=== PATIENT | male | born 1955 | race Caucasian/White ===

== ENCOUNTER 2021-05-27 08:17 | Emergency (ER) | payer OTHER ==
[~2021-05-27] VITALS: Ht 177.8 cm; Wt 79.5 kg
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
[2021-05-27] MEDS ORDERED: DIPH,PERTUSS(ACELL),TET VAC/PF 0.5 ML SYRINGE. VAX IM ONE (09:00)
[2021-05-27] MEDS ORDERED: CEPH500T PO (09:18)
[2021-05-27 09:37] VITALS: BP 146/72
== END 2021-05-27 09:40 | disposition home or self-care (01) ==
LOC: ER 08:17
DX: S62.522A Displaced fracture of distal phalanx of left thumb, initial encounter for closed fracture (principal); S50.311A Abrasion of right elbow, initial encounter; S40.211A Abrasion of right shoulder, initial encounter; S80.211A Abrasion, right knee, initial encounter; S60.512A Abrasion of left hand, initial encounter; V18.4XXA Pedal cycle driver injured in noncollision transport accident in traffic accident, initial encounter; Y93.I9 Activity, other involving external motion; Y92.488 Other paved roadways as the place of occurrence of the external cause; Y99.8 Other external cause status
CPT/HCPCS: 29125; 73130; 90471; 90715; 99283

== ENCOUNTER → 2021-12-14 | Outpatient (CLI) | payer OTHER ==
[~2021-12-14] MED LIST: CEPH500T PO; IOHEXOL 240 MG/ML 50ML VIAL. ONE; IOHEXOL 240 MG/ML 50ML VIAL. PO ONE; IOHEXOL 300 MG/ML 75 ML VIAL. IV ONE
--- NOTE | 2021-12-14 13:21 | RAD ---
CT ABDOMEN+PELVIS WO+W History: Microscopic hematuria Comparison: None. Technique: CT of the abdomen and pelvis with oral contrast only. Subsequently after the administratio n of intravenous contrast, nephrographic phase CT through the kidneys and delayed phases through the abdomen and pelvis. Post processed rotating mid 3-D reconstruction of the excretory urogram. Findings: The lung bases are clear. The liver, gallbladder, pancreas, spleen, and adrenal glands are unremarkab le. There is no nephrolithiasis. A right upper pole renal cyst measures 2.6 x 1.8 cm. No renal masses. No hydronephrosis. No urothelial lesion identified on excretory phase. Mild enlargement of the prostate with mass impression on the inferior bladder. Otherwise unremarkable bladder. The stomach and small bowel are within normal limits. Normal appendix. Colon is unremarkable. No free intraperitoneal air or fluid. No adenopathy. Vasculature is unremarkable. Fat-containing left inguinal hernia. No significant osseous abnormality. Impression: 1. Enlarged prostate with mass effect on the inferior bladder. Correlate for prostatic source of hem aturia. 2. No nephrolithiasis, hydronephrosis or renal/ureteral mass. ------ Exposure: One or more of the following individualized dose reduction techniques were utilized for thi s examination: 1. Automated exposure control 2. Adjustment of the mA and/or kV according to patient size 3. Use of iterative reconstruction technique. Electronically signed by: Samuel Gaytan MD (12/14/2021 1:18 PM) [id number]
== END ==
LOC: CT 08:13
PROVIDERS: ATTEND Specialist
DX: N28.1 Cyst of kidney, acquired (principal); R31.1 Benign essential microscopic hematuria; N40.0 Benign prostatic hyperplasia without lower urinary tract symptoms; K40.90 Unilateral inguinal hernia, without obstruction or gangrene, not specified as recurrent
CPT/HCPCS: 74178; Q9966; Q9967